=== PATIENT | male | born 1980 | race Caucasian/White ===

== ENCOUNTER → 2021-01-20 | Outpatient (CLI) | payer OTHER ==
[~2021-01-20] MED LIST: ACET-1600 PO; Balance of Nature PO; IBUP-1223 PO; IBUP200C8 PO; MEGA RED FISH OIL PO; MULT-758 PO; NATURE MADE PO; OXYC5TAB2 PO
== END | disposition home or self-care (01) ==
LOC: STAR 09:05
PROVIDERS: ATTEND Surgery
DX: Z20.822 Contact with and (suspected) exposure to COVID-19 (principal)
CPT/HCPCS: U0003; U0005

== ENCOUNTER 2021-01-24 07:12 | Day surgery (SDC) | payer OTHER ==
[~2021-01-24] VITALS: Ht 182.9 cm; Wt 84.8 kg
[2021-01-24] MEDS ORDERED: CHLORHEXIDINE 15 ML UDC PO ONE ×2 (07:30→09:30)
[2021-01-24] MEDS ORDERED: LACTATED RINGERS 1,000 ML IV SCH ×2 (07:30→09:30)
[2021-01-24 08:07] VITALS: BP 123/78
[2021-01-24] MEDS ORDERED: NATURE MADE PO (08:16)
[2021-01-24] MEDS ORDERED: IBUP200C8 PO (08:16)
[2021-01-24] MEDS ORDERED: Balance of Nature PO (08:16)
[2021-01-24] MEDS ORDERED: MULT-758 PO (08:16)
[2021-01-24] MEDS ORDERED: MEGA RED FISH OIL PO (08:16)
[2021-01-24] MEDS ORDERED: MIDAZOLAM 1 MG/ML, 2ML ONE (09:23)
[2021-01-24] MEDS ORDERED: FENTANYL PF 100 MCG/2ML ONE ×2 (09:24→11:05)
[2021-01-24] MEDS ORDERED: LABETALOL 5MG/ML, 20ML IV PRN (09:30)
[2021-01-24] MEDS ORDERED: ACETAMINOPHEN 325 MG TABLET PO PRN (09:30)
[2021-01-24] MEDS ORDERED: HYDROmorphone 1 MG/ML, 1ML INJ IVPush PRN (09:30)
[2021-01-24] MEDS ORDERED: OXYcodone 5 MG/5 ML ORAL.SOL UDC PO PRN (09:30)
[2021-01-24] MEDS ORDERED: FENTANYL PF 100 MCG/2ML IV PRN (09:30)
[2021-01-24] MEDS ORDERED: PROMETHAZINE 25 MG/ML, 1ML IVPush PRN (09:30)
[2021-01-24] MEDS ORDERED: MEPERIDINE/PF 25MG/0.5ML IVPush PRN (09:30)
[2021-01-24] MEDS ORDERED: ALBUTEROL SULFATE 2.5 MG/3 ML NPPB PRN (09:30)
[2021-01-24] MEDS ORDERED: LORazepam 2 MG/ML, 1ML IVPush PRN (09:30)
[2021-01-24] MEDS ORDERED: BUPIVACAINE/PF 0.5% ONE (10:35)
[2021-01-24] MEDS ORDERED: EPINEPHRINE 1 MG/ML, 1ML ONE (10:35)
[2021-01-24] MEDS ORDERED: GLYCOPYRROLATE 0.2MG/1ML, 5ML ONE (11:21)
[2021-01-24] MEDS ORDERED: PROPOFOL 10 MG/ML, 20ML ONE (11:21)
[2021-01-24] MEDS ORDERED: CEFAZOLIN 1,000 MG ONE (11:21)
[2021-01-24] MEDS ORDERED: ONDANSETRON 2MG/ML, 2ML ONE (11:21)
[2021-01-24] MEDS ORDERED: ROCURONIUM 10MG/ML,5ML ONE (11:21)
[2021-01-24] MEDS ORDERED: LIDOCAINE-MPF 2% ,5ML ONE (11:21)
[2021-01-24] MEDS ORDERED: KETOROLAC 30 MG/1 ML ONE (11:21)
[2021-01-24] MEDS ORDERED: NEOSTIGMINE 1 MG/ML, 10ML ONE (11:21)
[2021-01-24] MEDS ORDERED: IBUP-1223 PO (11:34)
[2021-01-24] MEDS ORDERED: OXYC5TAB2 PO (11:34)
[2021-01-24] MEDS ORDERED: ACET-1600 PO (11:34)
[2021-01-24] MEDS ORDERED: DEXAMETHASONE 4 MG/ML, 1ML ONE (15:00)
[2021-01-25] MEDS ORDERED: DEXAMETHASONE 4 MG/ML, 1ML ONE (14:41)
== END 2021-01-24 13:30 | disposition home or self-care (01) ==
LOC: OUT 07:12
PROVIDERS: ATTEND Surgery
DX: M94.8X8 Other specified disorders of cartilage, other site (principal); F17.210 Nicotine dependence, cigarettes, uncomplicated; Z98.890 Other specified postprocedural states; Z80.9 Family history of malignant neoplasm, unspecified
CPT/HCPCS: 21620; J0171; J0690; J1100; J1885; J2250; J2405; J2704; J2710; J3010; J7120